=== PATIENT | female | born 1955 | race Caucasian/White ===

== ENCOUNTER → 2017-01-31 | Outpatient (CLI) | payer OTHER ==
[~2017-01-31] MED LIST: ACET-1256 PO; ALPR-411 PO; AMLO-114 PO; ANAS1TAB19 PO; CALCTAB7 PO; CHOL100010 PO; FEXO1TAB49 PO; FOLI1TAB7 PO; LEFL10TA PO; LORA10TA5 PO; METH2.5T PO; METO1TAB31 PO; MULT-506 PO; PRIM250T30 PO; ROSU5TAB PO; SERT50TA PO
[2017-01-31 10:15] LABS: ALT/SGPT 32 U/L (12-78); AST/SGOT 19 U/L (15-37); BLOOD UREA NITROGEN 20 mg/dl (7-18); BUN/CREATININE RATIO 20.8 (10-20); CALCIUM 9.1 mg/dl (8.5-10.1); CARBON DIOXIDE 28 mmol/L (21-32); CHLORIDE 107 mmol/L (98-107); CHOLESTEROL 161 mg/dl (0-200); CHOLESTEROL/HDL RATIO 3.6; CREATININE 0.97 mg/dl (0.60-1.20); GLUCOSE 93 mg/dl (70-99); HDL CHOLESTEROL 45 mg/dl; LDL CHOLESTEROL CALCULATED 78 mg/dl; POTASSIUM 4.4 mmol/L (3.5-5.1); SODIUM 141 mmol/L (136-145); TRIGLYCERIDES 191 mg/dl (0-150); VERY LOW DENSITY LIPOPROT CALC 38 mg/dl
[2017-01-31 10:17] LABS: ALKALINE PHOSPHATASE 104 U/L (45-117)
== END | disposition home or self-care (01) ==
LOC: C.LAB1850 08:27
PROVIDERS: ATTEND Family Medicine
DX: E78.00 Pure hypercholesterolemia, unspecified (principal)

== ENCOUNTER → 2017-02-05 | Outpatient (CLI) | payer OTHER ==
[~2017-02-05] MED LIST changes: +METO-478 PO; -METO1TAB31 PO; -PRIM250T30 PO; +PRIM250T9 PO
[2017-02-05 14:49] VITALS: BP 159/106; PULSE 93; TEMP 36.8; O2SAT 97
--- NOTE | 2017-02-06 07:55 | Radiation Oncology Follow-Up ---
Radiation Oncology Follow-Up Date of Visit Feb 05, 2017. Reason For Visit 6 month follow-up Radiation Completion Date finished 06-13-2016 - utilizing accelerated partial breast radiation Diagnosis (1) Cancer of central portion of left female breast Status: Resolved Onset Date: 04/11/2016 Histology Subtype: ductal on biopsy Stage: l (A) Permanent Comment: Self detected left breast mass Status post ultrasound-guided needle biopsy 04/11/2016 Invasive ductal carcinoma grade 1 Estrogen receptor positive, progesterone receptor positive, HER-2/vasquez negative Status post lumpectomy and sentinel lymph node biopsy 05/02/2016 Invasive mammary carcinoma no specific type Pathologic stage pT1c pN0 M0 Oncotype DX 15 Status post completion of radiation therapy 06/13/2016 received 3850 cGy utilizing accelerated partial breast irradiation Last Edited By: Haylie Prado on Jun 25, 2016 15:49 History of Present Illness Ms. Flynn is a 61-year-old female who self detected a left breast mass in March of this year. Her prior bilateral digital screening mammogram was in June 2014. Patient therefore underwent a bilateral digital diagnostic mammogram and targeted left breast ultrasound on 04/04/2016. The area of the palpable lump was in the left breast at the 2 to 3 o'clock position anterior location. At the site of the palpable lump there was an irregular mass with non- circumscribed margins measuring 1.4 x 1.4 x 1.4 cm. Targeted ultrasound performed at the site of the palpable lump at the 3:00 periareolar region was an irregular hypoechoic solid mass with non-circumscribed margins measuring 1.3 x 1.1 x 1.2 cm that corresponded to the mammographic mass. This was highly suspicious and was given a BI-RADS Category 5 with recommended biopsy. No left axillary adenopathy was appreciated and no mammographic evidence of abnormality was noted in the right breast. On 04/11/2016 the patient underwent a needle localization biopsy of the left breast. This ultrasound guided biopsy revealed an invasive ductal carcinoma Diogo grade 1 of 3. There was no evidence of lymphovascular invasion. Estrogen receptors were positive (100%, strong intensity, H-score 300). Estrogen receptors were positive (100%, strong intensity, H-score 300). HER-2/ vasquez overexpression was negative and confirmed negative by FISH analysis. Ki-67 proliferation index was 18% (intermediate) the tumor measured up to 1.2 cm in greatest dimension on the glass slide. Case: [id number]. Patient was seen by Dr. Saravanan Ellis. He discussed treatment options with the patient who agreed to proceed with breast conserving therapy. Therefore on patient underwent a left partial mastectomy and sentinel node biopsy. The partial mastectomy specimen revealed an invasive carcinoma ofa type (ductal ) with a Diogo grade 1 of 3. The tumor measured 2.0 cm in greatest dimension. 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 All margins were negative for invasive and in situ carcinoma. Invasive and in situ carcinoma was located 0.1 cm from the medial margin on the main specimen. Additional medial tissue was taken and the final margin was therefore negative. 3 sentinel lymph nodes were identified and all 3 were negative for metastatic carcinoma on H&E and by pankeratin immunostains. The final AJCC pathologic staging was therefore pT1c pN0(sn-), ER positive, CT positive and HER-2/vasquez negative. Case: [id number]. Patient was seen by Dr. Jamal Abreu for evaluation and discussion of the role of adjuvant systemic therapy. Based on the size of the lesion and grade of the lesion patient was not thought to require systemic chemotherapy. However an Oncotype DX test was ordered and will be utilized to determine patient's risk with final recommendation for or against systemic chemotherapy. The patient will receive adjuvant antiestrogen therapy at the appropriate time. We were asked to see the patient in referral to discuss with her the role of adjuvant radiation. It is for this reason the patient is seen in referral. She underwent a CT simulation was found to be a candidate for accelerated partial breast treatment. She was treated from 06/07/2016 to 06/13/2016 and received 3850 cGy Interim History She has noted no pain or tenderness of the left breast. She is found no masses and no changes of the axilla. She is up-to-date on mammography. She is on Arimidex. She has mild hot flashes. She stated that these are not as severe as going through menopause. She had a mammogram 10/02/2016. This showed expected post therapy changes in the left breast status post lumpectomy and radiation. There is no definite mammographic evidence of malignancy. Advise follow-up in 6 months to reassess postsurgical changes in the left breast and also for routine mammography of the right breast. This has been scheduled for March. Today she is emotional and tearful. She finds it difficult to come back to the office for follow-up visits. She is also upset because a coworker has been diagnosed with breast cancer. Coworker will be undergoing bilateral mastectomies. Allergies Coded Allergies: Blue Dyes (Parenteral) (Unverified Adverse Reaction, Intermediate, raised itchy rash , 05/24/16) Home Medications Scheduled Amlodipine (Norvasc), 10 MG PO QAM Anastrozole (Arimidex), 1 TAB PO DAILY Calcium Carbonate-Vitamin D W/ (Caltrate 600 Plus), 1 TAB PO BID Cholecalciferol (Vitamin D), 2,000 INTER.UNIT PO QAM Fexofenadine Hcl (Estefanía Allergy), 1 TAB PO DAILY Folic Acid (Folvite), 1 MG PO QAM Leflunomide (Arava), 20 MG PO DAILY Methotrexate (Methotrexate), 5 TAB PO WK Metoprolol Succinate (Toprol Xl), 100 MG PO DAILY Multivitamin (Multivitamin), 1 TAB PO QAM Primidone (Mysoline), 250 MG PO BID Rosuvastatin Calcium (Crestor), 5 MG PO HS Sertraline (Zoloft), 50 MG PO HS Scheduled PRN Acetaminophen (Tylenol), 1,000 MG PO Q12 PRN for Pain Alprazolam (Xanax), 0.25 MG PO Q4 PRN for Anxiety Review of Systems Gastrointestinal: Symptoms: WNL Oral: Symptoms: No Problems Respiratory: Symptoms: WNL Other Respiratory: " I have allergies " Urinary: Symptoms: WNL Skin: Symptoms: No Problems Other Skin Symptoms: " Dry " Breast: Right Upper Arm Measurement: 42.0 Right Mid Arm Measurement: 30.0 Right Wrist Measurement: 18.0 Left Upper Arm Measurement: 44.0 Left Mid Arm Measurement: 30.0 Left Wrist Measurement: 17.0 Arm Dominence: Right Patient Cosmetic Evaluation: Good Staff Cosmetic Evalaluation: Good Physical Exam Vital Signs Date Time Temp Pulse Resp B/P Pulse Ox O2 Delivery O2 Flow Rate FiO2 02/05/17 14:49 36.8 93 20 159/106 97 Pain: Side: Bilateral Patient Pain Scale: 0 - 10 Initial Pain Intensity: 0.0 Fatigue: None General Appearance: no apparent distress Eyes: normal inspection, EOMI ENT: normal ENT inspection, hearing grossly normal Respiratory/Chest: lungs clear, no respiratory distress, no accessory muscle use Breast: Breast examination reveals well-healed incisions of the left breast. There are no masses or tenderness no axillary adenopathy. There is mild fibrocystic tissue at the area of the incision. There is no hyperpigmentation or telangiectasia. Using the Morrill score cosmesis she has a good outcome. The right breast showed no masses or tenderness no axillary adenopathy. Cardiovascular: regular rate, rhythm, no gallop, no murmur Extremities: no pedal edema Neurologic/Psychiatric: no motor/sensory deficits, alert, + depressed affect Skin: warm/dry Lymphatic: no adenopathy Laboratory Studies Test 01/31/17 08:32 Sodium Level 141 mmol/L (136-145) Potassium Level 4.4 mmol/L (3.5-5.1) Chloride Level 107 mmol/L (98-107) Carbon Dioxide Level 28 mmol/L (21-32) Anion Gap 6.0 mmol/L (3-11) Blood Urea Nitrogen 20 mg/dl (7-18) Creatinine 0.97 mg/dl (0.60-1.20) Estimated GFR () 73.6 Estimated GFR (Non- 63.5 BUN/Creatinine Ratio 20.8 (10-20) Random Glucose 93 mg/dl (70-99) Calcium Level 9.1 mg/dl (8.5-10.1) Total Bilirubin 0.4 mg/dl (0.2-1) Aspartate Amino Transferase (AST) 19 U/L (15-37) Alanine Aminotransferase (ALT) 32 U/L (12-78) Alkaline Phosphatase 104 U/L (45-117) Total Protein 8.2 gm/dl (6.4-8.2) Albumin 4.0 gm/dl (3.4-5.0) Globulin 4.2 gm/dl (2.5-4.0) Albumin/Globulin Ratio 1.0 (0.9-2) Triglycerides Level 191 mg/dl (0-150) Cholesterol Level 161 mg/dl (0-200) HDL Cholesterol 45 mg/dl LDL Cholesterol, Calculated 78 mg/dl VLDL Cholesterol, Calculated 38 mg/dl Cholesterol/HDL Ratio 3.6 Additional Studies UNILATERAL LEFT DIGITAL DIAGNOSTIC MAMMOGRAM TOMOSYNTHESIS WITH CAD: 10/02/2016 CLINICAL HISTORY: 61-year-old woman presents for first follow-up in the left breast status post treatment for breast cancer. TECHNIQUE: Left CC and MLO 2-D digital and tomosynthesis images, spot magnification left CC and ML views were obtained. Current study was also evaluated with a Computer Aided Detection (CAD) system. COMPARISON: Comparison is made to exams dated: 04/11/2016 mammogram, 05/02/2016 mammogram, 05/02/2016 specimen, 04/04/2016 ultrasound, 07/06/2014 mammogram, and mammogram - [facility]. BREAST COMPOSITION: There are scattered areas of fibroglandular density in the left breast. FINDINGS: There is expected architectural distortion and a 4 x 2 cm focal asymmetry in the 3:00 anterior left breast, at the site of the prior lumpectomy. [address] There is minimal trabecular edema of the left breast. No new suspicious mass, architectural distortion or cluster of suspicious microcalcifications is seen. IMPRESSION: IMPRESSION: ACR-BI-RADS CATEGORY 3: PROBABLY BENIGN 1. Expected posttreatment changes in the left breast status post lumpectomy and radiation. There is no definite mammographic evidence of malignancy. Advise follow-up in 6 months to reassess post surgical changes in the left breast and also for routine mammography of the right breast. These results and recommendations were discussed with the patient at the time of the exam. Approximately 10% of breast cancers are not detected with mammography. A negative mammographic report should not delay biopsy if a clinically suggestive mass is present. Cheryl Crews M.D. ay/:10/02/2016 12:18:33 Assessment & Plan Plan: She continues on the Arimidex. Continue regular follow-up with medical oncology and her primary care physician. We asked her to return to our office in 1 year. She may call our office she if she has any questions or concerns in the interim. We discussed being good support for her friend who will be undergoing bilateral mastectomies. Total Time In Follow-Up I spent 20 minutes speaking to the patient performing examination. I spent 15 minutes reviewing information completing this note. Copy To Saravanan Ellis M.D.; Jamal Cosme D.O.; Seven Moreno D.O.
== END | disposition home or self-care (01) ==
LOC: C.ONC 14:32
PROVIDERS: ATTEND Physician Assistant Medical
DX: Z08 Encounter for follow-up examination after completed treatment for malignant neoplasm (principal); Z92.3 Personal history of irradiation; Z85.3 Personal history of malignant neoplasm of breast

== ENCOUNTER → 2017-03-26 | Outpatient (CLI) | payer OTHER ==
[~2017-03-26] MED LIST changes: -LORA10TA5 PO
== END | disposition home or self-care (01) ==
LOC: C.RDSM 15:05
PROVIDERS: ATTEND Physical Medicine & Rehabilitation Sports Medicine
DX: G56.00 Carpal tunnel syndrome, unspecified upper limb (principal)

== ENCOUNTER → 2017-04-03 | Outpatient (CLI) | payer OTHER ==
[2017-04-03 10:30] LABS: BASO ABS # 0.04 K/uL (0-0.2); COMPLETE YES; EOS % 2.3 %; HEMATOCRIT 43.1 % (37-47); LYMPH % 32.9 %; LYMPH ABS # 1.26 K/uL (1.2-3.4); MEAN CELL VOLUME 91.1 fL (80-100); MEAN CORPUSCULAR HEMOGLOBIN 30.4 pg (25-34); MEAN CORPUSCULAR HGB CONC 33.4 g/dl (32-36); MEAN PLATELET VOLUME 10.4 fL (7.4-10.4); MONO % 15.7 %; NEUT % 48.1 %; PLATELET COUNT 206 K/uL (130-400); RED BLOOD COUNT 4.73 M/uL (4.2-5.4); WHITE BLOOD COUNT 3.83 K/uL (4.8-10.8)
[2017-04-03 11:20] LABS: ALT/SGPT 26 U/L (12-78); AST/SGOT 18 U/L (15-37); BLOOD UREA NITROGEN 24 mg/dl (7-18); BUN/CREATININE RATIO 21.8 (10-20); CALCIUM 9.2 mg/dl (8.5-10.1); CARBON DIOXIDE 28 mmol/L (21-32); CHLORIDE 108 mmol/L (98-107); GLUCOSE 102 mg/dl (70-99); POTASSIUM 4.5 mmol/L (3.5-5.1); SODIUM 142 mmol/L (136-145)
[2017-04-03 11:23] LABS: ALB/GLOB RATIO 1.1 (0.9-2); ALKALINE PHOSPHATASE 111 U/L (45-117)
== END | disposition home or self-care (01) ==
LOC: C.LAB1850 09:34
PROVIDERS: ATTEND Internal Medicine Hematology & Oncology
DX: C50.812 Malignant neoplasm of overlapping sites of left female breast (principal)

== ENCOUNTER → 2017-04-10 | Outpatient (CLI) | payer OTHER ==
--- NOTE | 2017-04-10 12:58 | MAMMOGRAPHY REPORT ---
BILATERAL DIGITAL DIAGNOSTIC MAMMOGRAM TOMOSYNTHESIS WITH CAD AND TARGETED RIGHT ULTRASOUND: 04/10/20 CLINICAL HISTORY: 62-year-old woman with a personal history of left breast cancer status post breast conservation therapy with lumpectomy performed in April 2016. TECHNIQUE: Bilateral breast tomosynthesis in addition to standard 2D mammography was performed. Spo t magnification left CC and ML views were performed over the lumpectomy bed, spot compression tomosy nthesis CC and MLO views were performed in the anterior right breast. Current study was also evalua rebecca with a Computer Aided Detection (CAD) system. COMPARISON: Comparison is made to exams dated: 10/02/2016 mammogram, 05/02/2016 mammogram, 05/02/2016 localization, 04/11/2016 mammogram, 04/04/2016 mammogram, and 07/06/2014 mammogram - [facility]. BREAST COMPOSITION: There are scattered areas of fibroglandular density in both breasts. FINDINGS: There is expected architectural distortion, density and surgical clips in the anterior lef t breast, at the site of prior lumpectomy. There is mild persistent trabecular edema. No focal ski n thickening. Overall no new suspicious mass, architectural distortion or suspicious calcifications are identified in the left breast. On the right MLO view in the anterior superior breast there is an increasingly conspicuous 3.5 mm nodular asymmetry. Additional spot compression views in this are a and subsequently ultrasound were performed. On the spot compression MLO view in the anterior supe rior right breast the nodular asymmetry effaces and has the appearance of normal fibroglandular tiss ue and overlapping Janes's ligaments. Additionally, when comparing back to prior available mammogr ams, this appearance is very similar to the 2013 MLO view, also suggesting benignity. The re is no evidence of a persistent spiculated mass or focal area of architectural distortion. No ger picious clustered microcalcifications are seen in the right breast. Targeted ultrasound was performed throughout the superior right breast. No suspicious solid or cyst ic mass is seen. IMPRESSION: ACR-BI-RADS CATEGORY 3: PROBABLY BENIGN, TARGETED ULTRASOUND ACR-BI-RADS CATEGORY 3: OR OBABLY BENIGN 1. Stable post-treated changes in the left breast, without mammographic evidence of malignancy. 2. A 3 mm nodular asymmetry in the anterior superior right breast effaces with additional supplemen cristian tomosynthesis images, and there is no suspicious sonographic correlate. The appearance is also very similar to the 2014 mammogram. This most likely represented normal overlapping fibroglandular tissue and Janes's ligaments, and is considered benign. Follow-up bilateral diagnostic mammograms the possible ultrasound are recommended in 6 months to ens ure continued stability after treatment. These results and recommendations were discussed with the patient at the time of the exam. Approximately 10% of breast cancers are not detected with mammography. A negative mammographic repor t should not delay biopsy if a clinically suggestive mass is present. Cheryl Crews M.D. ay/:04/10/2017 11:37:15 Dispatcher Bus And Trolley: Lacie JUNIOR(Jeison)(M), [facility] letter sent: Personal History 3 BI-RADS Code: ACR-BI-RADS Category 3: Probably Benign Ultrasound BI-RADS: ACR-BI-RADS Category 3: P robably Benign
== END | disposition home or self-care (01) ==
LOC: C.MAMM 07:56
PROVIDERS: ATTEND Physician Assistant Medical
DX: Z12.31 Encounter for screening mammogram for malignant neoplasm of breast (principal); Z85.3 Personal history of malignant neoplasm of breast; N64.9 Disorder of breast, unspecified

== ENCOUNTER → 2017-08-16 | Outpatient (CLI) | payer OTHER ==
[~2017-08-16] MED LIST changes: -METO-478 PO; +METO1TAB31 PO; +PRIM250T30 PO; -PRIM250T9 PO
[2017-08-16 09:47] LABS: BASO % 1.6 %; BASO ABS # 0.08 K/uL (0-0.2); COMPLETE YES; EOS % 3.6 %; HEMATOCRIT 43.6 % (37-47); LYMPH % 27.8 %; MEAN CELL VOLUME 91.6 fL (80-100); MEAN CORPUSCULAR HEMOGLOBIN 29.4 pg (25-34); MEAN CORPUSCULAR HGB CONC 32.1 g/dl (32-36); MEAN PLATELET VOLUME 10.6 fL (7.4-10.4); MONO % 12.7 %; NEUT % 54.3 %; PLATELET COUNT 224 K/uL (130-400); RED BLOOD COUNT 4.76 M/uL (4.2-5.4); WHITE BLOOD COUNT 5.04 K/uL (4.8-10.8)
[2017-08-16 10:16] LABS: ALT/SGPT 29 U/L (12-78); AST/SGOT 18 U/L (15-37); BLOOD UREA NITROGEN 24 mg/dl (7-18); BUN/CREATININE RATIO 23.5 (10-20); CARBON DIOXIDE 27 mmol/L (21-32); CHLORIDE 107 mmol/L (98-107); CHOLESTEROL 155 mg/dl (0-200); GLUCOSE 84 mg/dl (70-99); POTASSIUM 4.4 mmol/L (3.5-5.1); SODIUM 141 mmol/L (136-145); TRIGLYCERIDES 196 mg/dl (0-150); VERY LOW DENSITY LIPOPROT CALC 39 mg/dl
[2017-08-16 10:19] LABS: ALKALINE PHOSPHATASE 118 U/L (45-117); HDL CHOLESTEROL 39 mg/dl; LDL CHOLESTEROL CALCULATED 77 mg/dl
== END | disposition home or self-care (01) ==
LOC: C.LAB1850 07:33
PROVIDERS: ATTEND Family Medicine
DX: E78.00 Pure hypercholesterolemia, unspecified (principal); I10 Essential (primary) hypertension; C50.912 Malignant neoplasm of unspecified site of left female breast; Z11.59 Encounter for screening for other viral diseases

== ENCOUNTER → 2017-10-08 | Outpatient (CLI) | payer OTHER ==
[~2017-10-08] MED LIST changes: +METO-478 PO; -METO1TAB31 PO; -PRIM250T30 PO; +PRIM250T9 PO
[2017-10-08 09:38] LABS: BASO % 0.8 %; BASO ABS # 0.04 K/uL (0-0.2); COMPLETE YES; EOS % 3.2 %; HEMATOCRIT 41.4 % (37-47); IG% 0.2 %; LYMPH % 20.8 %; LYMPH ABS # 1.04 K/uL (1.2-3.4); MEAN CELL VOLUME 92.6 fL (80-100); MEAN CORPUSCULAR HEMOGLOBIN 30.2 pg (25-34); MEAN CORPUSCULAR HGB CONC 32.6 g/dl (32-36); MEAN PLATELET VOLUME 9.8 fL (7.4-10.4); MONO % 10.6 %; NEUT % 64.4 %; PLATELET COUNT 201 K/uL (130-400); RED BLOOD COUNT 4.47 M/uL (4.2-5.4); WHITE BLOOD COUNT 5.01 K/uL (4.8-10.8)
[2017-10-08 10:17] LABS: ALT/SGPT 29 U/L (12-78); AST/SGOT 21 U/L (15-37); BLOOD UREA NITROGEN 25 mg/dl (7-18); BUN/CREATININE RATIO 24.3 (10-20); CALCIUM 8.6 mg/dl (8.5-10.1); CARBON DIOXIDE 29 mmol/L (21-32); CHLORIDE 106 mmol/L (98-107); CREATININE 1.01 mg/dl (0.60-1.20); GLUCOSE 75 mg/dl (70-99); POTASSIUM 4.2 mmol/L (3.5-5.1); SODIUM 141 mmol/L (136-145)
[2017-10-08 10:19] LABS: ALB/GLOB RATIO 0.9 (0.9-2); ALKALINE PHOSPHATASE 131 U/L (45-117)
== END | disposition home or self-care (01) ==
LOC: C.LAB1850 08:29
PROVIDERS: ATTEND Internal Medicine Hematology & Oncology
DX: C50.812 Malignant neoplasm of overlapping sites of left female breast (principal)

== ENCOUNTER → 2017-10-15 | Outpatient (CLI) | payer OTHER ==
--- NOTE | 2017-10-15 15:08 | MAMMOGRAPHY REPORT ---
BILATERAL DIGITAL DIAGNOSTIC MAMMOGRAM TOMOSYNTHESIS WITH CAD: 10/15/2017 CLINICAL HISTORY: Asymptomatic. Personal history of breast cancer. TECHNIQUE: Bilateral breast tomosynthesis in addition to standard 2D mammography was performed. Spot magnification left CC and ML views were also obtained near the lumpectomy bed. Current study was al so evaluated with a Computer Aided Detection (CAD) system. COMPARISON: Comparison is made to exams dated: 04/10/2017 ultrasound, 04/10/2017 mammogram, 10/02/2016 mammogram, 05/02/2016 mammogram, 05/02/2016 specimen, and 05/02/2016 localization - [facility]. BREAST COMPOSITION: There are scattered areas of fibroglandular density in both breasts. FINDINGS: There is expected architectural distortion, fat necrosis and surgical clips in the upper ou ter anterior left breast, at the site of prior lumpectomy. There is evidence of scar retraction comp aring to prior postsurgical mammograms. There is a stable intramammary lymph node in the upper outer posterior right breast. The tiny nodular asymmetry in the anterior superior right breast on the MLO view is no longer seen, confirming the suspected normal overlapping tissue. No new suspicious mass, architectural distortion or cluster of microcalcifications is seen bilaterally. IMPRESSION: ACR-BI-RADS CATEGORY 3: PROBABLY BENIGN Expected post treatment changes in the left breast, with evidence of scar retraction comparing to lalita or posttreatment mammograms. No definite mammographic evidence of malignancy in the left breast and stable mammographic appearance of the right breast without mammographic evidence of malignancy. Russell mmend bilateral diagnostic mammography in 2017 to ensure stability at the two-year angelica afte r treatment. Also time of annual bilateral screening exam. These results and recommendations were discussed with the patient at the time of the exam. Approximately 10% of breast cancers are not detected with mammography. A negative mammographic report should not delay biopsy if a clinically suggestive mass is present. Cheryl Crews M.D. ay/:10/15/2017 08:37:40 Signal Operator Linguist: Cassandra JUNIOR(R)([place]), [facility] letter sent: Follow Up Recommended 3 BI-RADS Code: ACR-BI-RADS Category 3: Probably Benign
== END | disposition home or self-care (01) ==
LOC: C.MAMM 08:00
PROVIDERS: ATTEND Physician Assistant Medical
DX: R92.8 Other abnormal and inconclusive findings on diagnostic imaging of breast (principal); N64.89 Other specified disorders of breast

== ENCOUNTER → 2018-02-06 | Outpatient (CLI) | payer OTHER ==
[~2018-02-06] MED LIST changes: -FOLI1TAB7 PO; +FOLI1TAB8 PO
[2018-02-06 15:05] VITALS: BP 183/114; PULSE 69; TEMP 36.5; O2SAT 97
--- NOTE | 2018-02-06 16:38 | Radiation Oncology Follow-Up ---
Radiation Oncology Follow-Up Date of Visit Feb 06, 2018. Reason For Visit Annual follow-up Radiation Completion Date finished 06-13-2016, utilizing accelerated partial breast irradiation Diagnosis (1) Cancer of central portion of left female breast Status: Resolved Onset Date: 04/11/2016 Histology Subtype: Ductal on biopsy Stage: l (A) Permanent Comment: Self detected left breast mass Status post ultrasound-guided needle biopsy 04/11/2016 Invasive ductal carcinoma grade 1 Estrogen receptor positive, progesterone receptor positive, HER-2/vasquez negative Status post lumpectomy and sentinel lymph node biopsy 05/02/2016 Invasive mammary carcinoma no specific type Pathologic stage pT1c pN0 M0 Oncotype DX 15 Status post completion of radiation therapy 06/13/2016 received 3850 cGy utilizing accelerated partial breast irradiation Last Edited By: Haylie Prado on Jun 25, 2016 15:49 History of Present Illness Ms. Flynn self detected a left breast mass in March of 2016. Her prior bilateral digital screening mammogram was in June 2014. Patient therefore underwent a bilateral digital diagnostic mammogram and targeted left breast ultrasound on . The area of the palpable lump was in the left breast at the 2 to 3 o' clock position anterior location. At the site of the palpable lump there was an irregular mass with non-circumscribed margins measuring 1.4 x 1.4 x 1.4 cm. Targeted ultrasound performed at the site of the palpable lump at the 3:00 periareolar region was an irregular hypoechoic solid mass with non- circumscribed margins measuring 1.3 x 1.1 x 1.2 cm that corresponded to the mammographic mass. This was highly suspicious and was given a BI-RADS Category 5 with recommended biopsy. No left axillary adenopathy was appreciated and no mammographic evidence of abnormality was noted in the right breast. On 04/11/2016 the patient underwent a needle localization biopsy of the left breast. This ultrasound guided biopsy revealed an invasive ductal carcinoma [place] grade 1 of 3. There was no evidence of lymphovascular invasion. Estrogen receptors were positive (100%, strong intensity, H-score 300). Estrogen receptors were positive (100%, strong intensity, H-score 300). HER-2/ vasquez overexpression was negative and confirmed negative by FISH analysis. Ki-67 proliferation index was 18% (intermediate) the tumor measured up to 1.2 cm in greatest dimension on the glass slide. Case: [id number]. Patient was seen by Dr. Saravanan Ellis. He discussed treatment options with the patient who agreed to proceed with breast conserving therapy. Therefore on patient underwent a left partial mastectomy and sentinel node biopsy. The partial mastectomy specimen revealed an invasive carcinoma ofa type (ductal ) with a [place] grade 1 of 3. The tumor measured 2.0 cm in greatest dimension. 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 All margins were negative for invasive and in situ carcinoma. Invasive and in situ carcinoma was located 0.1 cm from the medial margin on the main specimen. Additional medial tissue was taken and the final margin was therefore negative. 3 sentinel lymph nodes were identified and all 3 were negative for metastatic carcinoma on H&E and by pankeratin immunostains. The final AJCC pathologic staging was therefore pT1c pN0(sn-), ER positive, [place] positive and HER-2/vasquez negative. Case: [id number]. Patient was seen by Dr. Jamal Abreu for evaluation and discussion of the role of adjuvant systemic therapy. Based on the size of the lesion and grade of the lesion patient was not thought to require systemic chemotherapy. However an Oncotype DX test was ordered and will be utilized to determine patient's risk with final recommendation for or against systemic chemotherapy. The patient will receive adjuvant antiestrogen therapy at the appropriate time. We were asked to see the patient in referral to discuss with her the role of adjuvant radiation. It is for this reason the patient is seen in referral. She underwent a CT simulation was found to be a candidate for accelerated partial breast treatment. She was treated from 06/07/2016 to 06/13/2016 and received 3850 cGy Interim History She has been doing well over this past year. She is noted no changes to her breast. She has noted no masses or tenderness no change of the axilla. She has had no swelling of her arm. She is up-to-date on mammography. She is on Arimidex and denies side effects. Allergies Coded Allergies: Blue Dyes (Parenteral) (Unverified Adverse Reaction, Intermediate, raised itchy rash , 05/24/16) Home Medications Scheduled Amlodipine (Norvasc), 10 MG PO QAM Anastrozole (Arimidex), 1 TAB PO DAILY Calcium Carbonate-Vitamin D W/ (Caltrate 600 Plus), 1 TAB PO BID Cholecalciferol (Vitamin D), 2,000 INTER.UNIT PO QAM Fexofenadine Hcl (Estefanía Allergy), 1 TAB PO DAILY Folic Acid (Folvite), 1 MG PO QAM Leflunomide (Arava), 20 MG PO DAILY Methotrexate (Methotrexate), 5 TAB PO WK Metoprolol Succinate (Toprol Xl), 100 MG PO DAILY Multivitamin (Multivitamin), 1 TAB PO QAM Primidone (Mysoline), 250 MG PO BID Rosuvastatin Calcium (Crestor), 5 MG PO HS Sertraline (Zoloft), 50 MG PO HS Scheduled PRN Acetaminophen (Tylenol), 1,000 MG PO Q12 PRN for Pain Alprazolam (Xanax), 0.25 MG PO Q4 PRN for Anxiety Review of Systems Gastrointestinal: Symptoms: WNL Oral: Symptoms: No Problems Respiratory: Symptoms: WNL Other Respiratory: " I have allergies " Urinary: Symptoms: WNL Skin: Symptoms: No Problems Other Skin Symptoms: " Dry " Breast: Right Upper Arm Measurement: 42.0 Right Mid Arm Measurement: 29.0 Right Wrist Measurement: 18.0 Left Upper Arm Measurement: 41.0 Left Mid Arm Measurement: 29.0 Left Wrist Measurement: 17.2 Arm Dominence: Right Patient Cosmetic Evaluation: Excellent Staff Cosmetic Evalaluation: Excellent Physical Exam Vital Signs Date Time Temp Pulse Resp B/P (MAP) Pulse Ox O2 Delivery O2 Flow Rate FiO2 02/06/18 15:05 36.5 69 20 183/114 97 Fatigue: None General Appearance: no apparent distress Eyes: normal inspection, EOMI ENT: normal ENT inspection, hearing grossly normal Neck: no adenopathy, thyroid normal Respiratory/Chest: lungs clear, no respiratory distress, no accessory muscle use Breast: Breast examination reveals well-healed incisions of the left breast. There are mild fibrous changes in the area of the breast incision. There are no masses or tenderness and no axillary adenopathy. Using the [place] score cosmesis she has a good outcome. The right breast showed no masses or tenderness and no axillary adenopathy. Cardiovascular: regular rate, rhythm, no gallop, no murmur Extremities: no pedal edema Neurologic/Psychiatric: no motor/sensory deficits, alert, normal mood/affect Skin: warm/dry Pain Management Patient Reports Pain: No Side: Bilateral Pain Location: None Patient Preferred Pain Scale: 0 - 10 Initial Pain Intensity: 0.0 Pain Management Plan She denied pain therefore requires no pain management. Laboratory Laboratory Results: were reviewed, and pertinent findings noted in [facility] Pathology Pathology Results: were reviewed, and pertinent findings noted in [facility] Imaging Imaging Studies: were reviewed, and pertinent findings noted below Imaging Comments Patient: UBALDO FLYNN [facility] Rec: [id number] Address1: [address] [id number] Date: 1955 Sex: F Ref Phy: Att Phy: Haylie Prado PA-C Majo Phy: Seven Moreno D.O. Inter Phy: Cheryl Crews MD [facility] Zip: [place] [address] SC: C.MAMM Report #: [id number] Maturity Checker: DAVID Diagnosis: LEFT BREAST CA Service Date: 10/02/16 MNE: [id number] Ordering Dr: Haylie Prado PA-C CC: Haylie Prado PA-C CONF: DICTATED BY: Cheryl Crews MD MAMMOGRAPHY REPORT UNILATERAL LEFT DIGITAL DIAGNOSTIC MAMMOGRAM TOMOSYNTHESIS WITH CAD: 10/02/2016 CLINICAL HISTORY: 61-year-old woman presents for first follow-up in the left breast status post treatment for breast cancer. TECHNIQUE: Left CC and MLO 2-D digital and tomosynthesis images, spot magnification left CC and ML views were obtained. Current study was also evaluated with a Computer Aided Detection (CAD) system. COMPARISON: Comparison is made to exams dated: 04/11/2016 mammogram, 05/02/2016 mammogram, 05/02/2016 specimen, 04/04/2016 ultrasound, 07/06/2014 mammogram, and mammogram - [facility]. BREAST COMPOSITION: There are scattered areas of fibroglandular density in the left breast. FINDINGS: There is expected architectural distortion and a 4 x 2 cm focal asymmetry in the 3:00 anterior left breast, at the site of the prior lumpectomy. [address] There is minimal trabecular edema of the left breast. No new suspicious mass, architectural distortion or cluster of suspicious microcalcifications is seen. IMPRESSION: IMPRESSION: ACR-BI-RADS CATEGORY 3: PROBABLY BENIGN 1. Expected posttreatment changes in the left breast status post lumpectomy and radiation. There is no definite mammographic evidence of malignancy. Advise follow-up in 6 months to reassess post surgical changes in the left breast and also for routine mammography of the right breast. These results and recommendations were discussed with the patient at the time of the exam. Approximately 10% of breast cancers are not detected with mammography. A negative mammographic report should not delay biopsy if a clinically suggestive mass is present. Cheryl Crews M.D. ay/:10/02/2016 12:18:33 Poultry Service Technician: Katrin LUCIANO)([place]), [facility] letter sent: Follow Up Recommended 3 BI-RADS Code: ACR-BI-RADS Category 3: Probably Benign Dictated by: Cheryl Crews MD Signed by: Cheryl Crews MD Assessment & Plan Plan: Continue with scheduled mammography. She continues on Arimidex. Her blood pressure is noted to be elevated. She would not allow the nurse to take repeat evaluation. She also stated she did not wish to speak any further about the elevation of the blood pressure. She is aware of the blood pressure reading. This has been elevated on all previous visits. We asked her to return to our office in 1 year. She may call if she has any questions or concerns in the interim. Total Time In Follow-Up I spent 20 minutes speaking to the patient in performing examination. I spent 15 minutes reviewing information and completing this note. Copy To Jamal Comse D.O.; Seven Moreno D.O. Problem Qualifiers (1) Cancer of central portion of left female breast: Estrogen receptor status: positive Qualified Codes: C50.112 - Malignant neoplasm of central portion of left female breast; Z17.0 - Estrogen receptor positive status [ER+]
== END | disposition home or self-care (01) ==
LOC: C.ONC 15:01
PROVIDERS: ATTEND Physician Assistant Medical
DX: Z08 Encounter for follow-up examination after completed treatment for malignant neoplasm (principal); Z92.3 Personal history of irradiation; Z85.3 Personal history of malignant neoplasm of breast

== ENCOUNTER → 2018-03-13 | Outpatient (CLI) | payer OTHER ==
[2018-03-13 09:44] LABS: ALBUMIN 3.8 gm/dl (3.4-5.0); ALT/SGPT 27 U/L (12-78); AST/SGOT 17 U/L (15-37); BLOOD UREA NITROGEN 32 mg/dl (7-18); CARBON DIOXIDE 29 mmol/L (21-32); CREATININE 1.02 mg/dl (0.60-1.20); GLUCOSE 85 mg/dl (70-99); POTASSIUM 4.2 mmol/L (3.5-5.1); SODIUM 139 mmol/L (136-145)
[2018-03-13 09:47] LABS: ALKALINE PHOSPHATASE 132 U/L (45-117); CHOLESTEROL 160 mg/dl (0-200); LDL CHOLESTEROL CALCULATED 84 mg/dl; TOTAL PROTEIN 7.5 gm/dl (6.4-8.2)
== END | disposition home or self-care (01) ==
LOC: C.LAB1850 07:04
PROVIDERS: ATTEND Family Medicine
DX: E78.00 Pure hypercholesterolemia, unspecified (principal); I10 Essential (primary) hypertension